=== PATIENT | female | born 1955 | race Caucasian/White ===

== ENCOUNTER 2018-10-02 11:07 | Inpatient (IN) | payer OTHER ==
[2018-10-02] MEDS ORDERED: NS 0.9% 1000 ML** 1,000 ML IV ONE (11:29)
--- NOTE | 2018-10-02 11:46 | ED ---
GI/ HPI - HPI Summary HPI Summary: A 63 y/o female presents to [facility] with a chief complaint of a GI bleed. She says that she had severe abdominal pain in her epigastric area on 09/26/18 that radiated to her back, but she felt better after ice cream. She felt better the next day, but the day after that at lunch around 14:30 when eating a salad she was nauseous and was vomiting for an hour. She then went home and was vomiting even more with diarrhea and abdominal cramping. She noticed that there was bright red blood in her stool. She notes that she passed out several times on the floor. Three days ago at work she "could hardly stand up". She thought that by rehydrating herself would help herself, but she reports coffee-ground emesis 3-4 days ago. She tried 7Up, Annalise ildefonso and Sprite 3 days ago and then she stopped having vomiting and diarrhea, but felt fatigued and could hardly stand up. Today she had stool that again had red blood and the patient is pale. At triage she rated her pain as a 6 /10 in severity. She has a Hx of duodenal ulcer an adrenal insufficiency. She takes Prednisone. - History of Current Complaint Chief Complaint: EDGIBleed Time Seen by Provider: 10/02/18 11:27 Stated Complaint: POSSIBLE GI BLEED PER PT Hx Obtained From: Patient Onset/Duration: Started Days Ago, Still Present Timing: Intermittent, Lasting Days Severity: Moderate Current Severity: Moderate Pain Intensity: 6 - out of 10 Location of Pain: Epigastric Pain Characteristics: Cramping Pain Radiates to: Back Associated Signs and Symptoms: Positive: Nausea, Vomiting, Bright Red Blood w/ Stool, Blood w/Stool, Diarrhea, Pale. Negative: Fever - Allergy/Home Medications Allergies/Adverse Reactions: Allergies Allergy/AdvReac Type Severity Reaction Status Date / Time Iodinated Contrast- Oral and Allergy Severe See Comment Verified 10/02/18 11:24 IV Dye Iodine and Iodide Containing Allergy Severe Anaphylatic Verified 10/02/18 11:24 Produc Shock procaine [From Novocain] Allergy Severe See Comment Verified 10/02/18 11:24 prochlorperazine Allergy Intermediate Hives Verified 10/02/18 11:24 [From Compazine] acetaminophen [From Percocet] Allergy Hives Verified 10/02/18 11:24 adhesive tape Allergy Hives Verified 10/02/18 11:24 hydroxyzine [From Vistaril] Allergy Altered Verified 10/02/18 11:24 Mental Status oxycodone [From Percocet] Allergy Hives Verified 10/02/18 11:24 Home Medications: Home Medications Caffeine 200 mg PO DAILY 10/02/18 [History Confirmed 10/02/18] Calcium Carbonate [Calcium] 500 mg PO DAILY 10/02/18 [History Confirmed 10/02/18 ] Dicyclomine CAP* [Bentyl CAP*] 10 mg PO DAILY 10/02/18 [History Confirmed ] Gabapentin 300 mg PO QPM 10/02/18 [History Confirmed 10/02/18] Hydrocodone/Acetaminophen [[place] 5-325 Tablet] 0.5 each PO Q3HR 10/02/18 [ History Confirmed 10/02/18] Levothyroxine Sodium 75 mcg PO DAILY 10/02/18 [History Confirmed 10/02/18] Magnesium Oxide [Magnesium] 250 mg PO DAILY 10/02/18 [History Confirmed 10/02/18 ] Ondansetron HCl [Zofran 4 MG TAB] 8 mg PO DAILY PRN 10/02/18 [History Confirmed 10/02/18] Valsartan/HCTZ 160/12.5(NF) [Diovan HCT 160/12.5 (NF)] 1 tab PO QAM 10/02/18 [ History Confirmed 10/02/18] Zolpidem Tartrate [Ambien Cr] 12.5 mg PO BEDTIME 10/02/18 [History Confirmed ] predniSONE [Prednisone 5 MG TAB] 10 mg PO DAILY 10/02/18 [History Confirmed ] PMH/Surg Hx/FS Hx/Imm Hx GI History: Reports: Hx Ulcer Sensory History: Denies: Hx Deafness EENT History: Denies: Hx Deafness Infectious Disease History: No Infectious Disease History: Denies: Traveled Outside the [place] in Last 30 Days - Family History Known Family History: Negative: Hypertension, Diabetes - Social History Alcohol Use: None Hx Substance Use: No Substance Use Type: Reports: None Hx Tobacco Use: No Smoking Status (MU): Never Smoked Tobacco Review of Systems Negative: Fever Positive: Abdominal Pain, Vomiting, Diarrhea, Nausea, Other - positive: blood in stool All Other Systems Reviewed And Are Negative: Yes Physical Exam - Summary Physical Exam Summary: VITAL SIGNS: Reviewed. GENERAL: Patient is a well-developed and nourished FEMALE who is lying comfortable in the stretcher. Patient is not in any acute respiratory distress. HEAD AND FACE: No signs of trauma. No ecchymosis, hematomas or skull depressions. No sinus tenderness. EYES: PERRLA, EOMI x 2, No injected conjunctiva, no nystagmus. EARS: Hearing grossly intact. Ear canals and tympanic membranes are within normal limits. MOUTH: Dry oral mucosa. NECK: Supple, trachea is midline, no adenopathy, no JVD, no carotid bruit, no c- spine tenderness, neck with full ROM. CHEST: Symmetric, no tenderness at palpation. LUNGS: Clear to auscultation bilaterally. No wheezing or crackles. CVS: Regular rate and rhythm, S1 and S2 present, no murmurs or gallops appreciated. ABDOMEN: Soft, mild epigastric tenderness. No signs of distention. No rebound, no guarding, and no masses palpated. Bowel sounds are normal. Rectal exam revealed melena. EXTREMITIES: FROM in all major joints, no edema, no cyanosis or clubbing. NEURO: Alert and oriented x 3. No acute neurological deficits. Speech is normal and follows commands. SKIN: Dry and warm, pale. Triage Information Reviewed: Yes Vital Signs On Initial Exam: Initial Vitals Temp Pulse Resp BP Pulse Ox 97.6 F 84 16 107/65 97 10/02/18 11:11 10/02/18 11:11 10/02/18 11:11 10/02/18 11:11 10/02/18 11:11 Vital Signs Reviewed: Yes Diagnostics - Vital Signs Vital Signs Temp Pulse Resp BP Pulse Ox 10/02/18 11:11 97.6 F 84 16 107/65 97 - Laboratory Result Diagrams: 10/03/18 05:23 10/03/18 05:23 Lab Statement: Any lab studies that have been ordered have been reviewed, and results considered in the medical decision making process. GIGU Course/Dx - Course Assessment/Plan: A 63 y/o female presents to [facility] with a chief complaint of a GI bleed. She says that she had severe abdominal pain in her epigastric area on 09/26/18 that radiated to her back, but she felt better after ice cream. She felt better the next day, but the day after that at lunch around 14:30 when eating a salad she was nauseous and was vomiting for an hour. She then went home and was vomiting even more with diarrhea and abdominal cramping. She noticed that there was bright red blood in her stool. She notes that she passed out several times on the floor. Three days ago at work she "could hardly stand up". She thought that by rehydrating herself would help herself, but she reports coffee-ground emesis 3-4 days ago. She tried 7Up, Annalise ildefonso and Sprite 3 days ago and then she stopped having vomiting and diarrhea, but felt fatigued and could hardly stand up. Today she had stool that again had red blood and the patient is pale. At triage she rated her pain as a 6/10 in severity. She has a Hx of duodenal ulcer an adrenal insufficiency. She takes Prednisone. In the ED course the patient was placed in a security monitor, IV access was obtained, IV fluids were started. Blood test results without any significant abnormality except for RBCs of 2.67, hemoglobin 7.4, hematocrit 22, PTT of 42.2, BUN is 43, creatinine 1.33, and total protein of 5.7. Guaiac is positive. In the ED course the patient was given IV fluids and Protonix. At this time I discussed my physical exam and findings with Dr. Hernandez from GI and he would consult for this patient. He also recommends admission to the hospitalist. I discussed my physical exam and test results with Dr. Clifton from the hospitalist services and she agrees to admit patient to her services. Patient is hemodynamically stable alert and oriented x 3. - Diagnoses Provider Diagnoses: GI bleed - Physician Notifications Discussed Care Of Patient With: Massimo Hernandez Time Discussed With Above Provider: 12:39 Instructed by Provider To: MD Will See In ED - Critical Care Time Critical Care Time: 30-74 min Discharge - Sign-Out/Discharge Documenting (check all that apply): Patient Departure - admit Patient Received Moderate/Deep Sedation with Procedure: No - Discharge Plan Condition: Fair Disposition: ADMITTED TO [facility] - Billing Disposition and Condition Condition: FAIR Disposition: Admitted to [facility] - Attestation Statements Document Initiated by Scribe: Yes Documenting Scribe: Daquan Vallejo Provider For Whom Scribe is Documenting (Include Credential): Shane Ramirez MD Scribe Attestation: I, Daquan Vallejo, scribed for Shane Raimrez MD on 10/03/18 at 2021. Scribe Documentation Reviewed: Yes Provider Attestation: The documentation as recorded by the scribe, Daquan Vallejo accurately reflects the service I personally performed and the decisions made by me, Shane Ramirez MD Status of Scribe Document: Viewed Consult Consult: At 12:50 - Discussed case with Dr. Clifton, hospitalist, who accepted the patient for admission.
[2018-10-02 11:58] LABS: ABS Basophils 0.1 10^3/ul (0-0.2); ABS Eosinophils 0.4 10^3/ul (0-0.6); ABS Lymphocytes 1.6 10^3/ul (1.0-4.8); ABS Monocytes 0.4 10^3/ul (0-0.8); ABS Neutrophils 3.4 10^3/ul (1.5-7.7); Eosinophil % 6.8 %; Hematocrit 22 % (35-47); Hemoglobin 7.4 g/dL (12.0-16.0); Lymphocyte % 26.6 %; Mean Corpuscular HGB Conc 33 g/dL (31-36); Mean Corpuscular Hemoglobin 28 pg (27-31); Mean Corpuscular Volume 84 fL (80-97); Mean Platelet Volume 8.3 fL (7.4-10.4); Platelet Count 244 10^3/uL (150-450); Red Blood Count 2.67 10^6 /uL (3.70-4.87); Red Cell Distribution Width 19 % (10-15); White Blood Count 5.9 10^3/uL (3.5-10.8)
[2018-10-02 12:15] LABS: Albumin 3.6 g/dL (3.2-5.2); Albumin/Globulin Ratio 1.7 (1-3); BUN/Creatinine Ratio 32.3 (8-20); C Reactive Protein 5.02 mg/L (<8.01); Calcium 9.1 mg/dL (8.6-10.3); EGFR African American 48.9 (>60); EGFR Non-African American 40.4 (>60); Globulin 2.1 g/dL (2-4); Potassium 3.7 mmol/L (3.5-5.0); Total Bilirubin 0.3 mg/dL (0.2-1.0); Total Protein 5.7 g/dL (6.4-8.9)
[2018-10-02 12:19] LABS: Activated Partial Thrombo Time 42.2 seconds (26.0-38.0)
[2018-10-02 12:21] LABS: BNP 68 pg/mL (<=100)
[2018-10-02] MEDS ORDERED: Pantoprazole IV* 40 MG IV ONE (12:39)
[2018-10-02 13:03] LABS: INR 0.94 (0.82-1.09)
[2018-10-02] MEDS ORDERED: Acetaminophen TAB* 325 MG PO PRN (14:07)
[2018-10-02] MEDS ORDERED: Ondansetron TAB* 4 MG PO PRN (14:15)
[2018-10-02 15:08] LABS: Urine Appearance Cloudy; Urine Bacteria 1+ (Absent); Urine Bilirubin Negative (Negative); Urine Blood Negative (Negative); Urine Color Yellow; Urine Glucose Negative (Negative); Urine Ketones Negative (Negative); Urine Nitrite Positive (Negative); Urine Protein Negative (Negative); Urine Red Blood Cell Trace(0-2/hpf) (Absent); Urine Specific Gravity 1.013 (1.010-1.030); Urine Squamous Epithelial Cell Present (Absent); Urine Urobilinogen Negative (Negative); Urine White Blood Cell 2+(11-20/hpf) (Absent)
[2018-10-02] MEDS: NS 0.9% 1000 ML** 1,000 ML IV SCH ×2 (16:12→23:43)
[2018-10-02] MEDS ORDERED: HYDROcodone/ACET. 7.5/325 LIQ* 15 ML UDC PO PRN (17:04)
[2018-10-02] MEDS: HYDROcodone/ACETAMIN 5-325 MG* 1 TAB PO PRN ×2 (17:14→23:25)
[2018-10-02] MEDS: Pantoprazole* 80 mg IN NS 80 MG/250 ML BAG IV SCH (17:15)
[2018-10-02] MEDS: methylPREDNISolone SOD 40 MG* 1 ML VIAL IV SCH ×2 (17:17→23:26)
--- NOTE | 2018-10-02 19:05 | HP ---
CC: Dr. Hernandez; Dr. Levi, [place], [place] * HISTORY AND PHYSICAL: DATE OF ADMISSION: 10/02/18 PRIMARY CARE PROVIDER: Dr. Maynor Levi from [place], [place], phone number [phone]. CHIEF COMPLAINT: Black and bloody stool. HISTORY OF PRESENT ILLNESS: Ms. Mcmahon is a 63-year-old female with history of status post pheochromocytoma resection as well as status post gastric sleeve surgery in 1996 and gastric ulcers over 30 years ago who presented to the hospital complaining of bloody and black diarrhea. The patient stated that ever since her gastric sleeve surgery in 1996 she has had occasional abdominal pain that is shooting pain; sometimes it "knocks the air out of her" and she takes Bentyl for that. She stated that she had a similar pain on Wednesday, 6 days ago, took some Tums and did well. Subsequently, 3 or 4 days later, when having lunch at the local cafeteria, she had the sudden onset of nausea and vomiting, went home, continued to have nausea and vomiting and started having coffee-ground vomiting. Later on, she developed diarrhea. She had an episode of syncope at home with the diarrhea that was also black. She refused to come in to the emergency department for evaluation. At that point, she stopped her naproxen; she usually takes it twice a day 500 mg and her aspirin that she takes 81 mg daily for a couple of days. She stated that it felt that her black bowel movements are improving until today, when she had another bout of basically bloody diarrhea. She complains of no abdominal pain. She is going to be admitted with a diagnosis of GI bleed. PAST MEDICAL HISTORY: 1. 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 2. History of subsequent adrenal insufficiency diagnosed in October 2017, on chronic prednisone. 3. History of chronic meningioma, which is stable and not operated on. 4. History of subarachnoid hemorrhage in 2002, treated medically. No aneurysm was found. 5. History of hypertension. 6. History of coronary artery disease, status post cardiac catheterization 4 years ago in [place], [place], which showed 80% mid LAD stenosis that was not amenable for intervention. At that point, the patient was recommended to continue aspirin. 7. History of kidney stones. In 1996, the patient has partial gastrectomy and stated that 10% of her stomach was removed for bariatric surgery. After the surgery, she lost approximately 80 pounds. Prior to the surgery, she stated that she had liver and and renal failure. 8. History of digastric ulcers over 30 years ago. CURRENT MEDICATIONS: Include: 1. Caffeine 200 mg daily. 2. Gabapentin 300 mg p.o. q.p.m. 3. Naproxen 500 mg b.i.d. 4. [place] 5 mg/325 mg half a tablet every 3 hours p.r.n. 5. Levothyroxine 75 mcg daily. 6. Bentyl 10 mg daily p.r.n. 7. Calcium carbonate on a p.r.n. basis. 8. Omeprazole 40 mg daily. 9. Magnesium 250 mg daily. 10. Zofran on a p.r.n. basis. 11. Diovan hydrochlorothiazide 160/4.5 one tablet q.a.m. 12. Prednisone 10 mg daily. 13. Ambien 12.5 mg at bedtime. ALLERGIES: Include: 1. IODINE CONTRAST DYE, which caused the patient to have cardiac arrest. 2. NOVOCAINE also caused respiratory arrest. 3. COMPAZINE, hives. 4. ACETAMINOPHEN, hives. 5. ADHESIVE TAPE, hives. 6. VISTARIL, altered mental status. 7. OXYCODONE, hives. Please note the patient takes currently hydrocodone without any problems. FAMILY HISTORY: Positive for sister with colon cancer. Grandfather with colon cancer. 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 She stated that her contract is over in the next 4 days and she is planning to go back to her home in [place] at that time. The patient denies any tobacco, alcohol, or drug use. She drinks coffee on a daily basis. Her surrogate is her , Deyvi. REVIEW OF SYSTEMS: Please see history of present illness. In addition to the above mentioned, the patient stated that she had been gaining weight when on prednisone and she gained over 20 pounds in the past 6 months. In regards to her cardiac history, she denies any problems with exercise intolerance and denies problems with chest pain. All the remaining 12 systems were reviewed with the patient, and apart from the above-mentioned and the ones mentioned in the history of present illness, were negative. PHYSICAL EXAMINATION GENERAL: The patient is a pleasant 63-year-old female who is not in acute distress. Alert and oriented x3. VITAL SIGNS: Blood pressure of 96/55, heart rate of 68 and regular, respiratory rate 16, oxygen saturation 94% on room air, temperature of 97.6. HEENT: Head atraumatic, normocephalic. Eyes: Pupils are equal and reactive to light and accommodation. Oropharynx is clear. Mucosa moist. NECK: Supple. No JVD. No bruit bilaterally. RESPIRATORY: Clear to auscultation bilaterally. CARDIOVASCULAR: Regular rate and rhythm. No murmur. ABDOMEN: Soft, nontender. Bowel sounds are present in all 4 quadrants. EXTREMITIES: There is trace pedal edema, +2 bilaterally. There is no clubbing and cyanosis. NEURO EVALUATION: Speech is clear. Cranial nerves II through XII grossly intact. Motor strength is 5/5 in bilaterally. SKIN: On evaluation of the skin, pale, dry. No rashes appreciated. PSYCHIATRIC EVALUATION: Alert and oriented x3 with no evidence of anxiety or depression. DIAGNOSTIC STUDIES/LAB DATA: Laboratory Data: Sodium 139, potassium 2.7, chloride 105, carbon dioxide 28, BUN 14, creatinine 1.33. Liver function is unremarkable. Lactic acid 1.8. White blood cell count 5.9, hemoglobin of 7.4, hematocrit 22, MCV of 84, and platelets of 244. INR of 0.94, PTT of 42.2. ASSESSMENT AND PLAN: 1. The patient has acute likely upper gastrointestinal bleed. Dr. Hernandez was also already consulted on the case and saw the patient. The patient is going to be placed on Protonix drip and placed in the ICU due to mild hypotension. She is going to be transfused 2 units of packed red blood cells and her H and H is going to be checked every 6 hours. Gastroenterology will follow up on a daily basis, but so far no emergent EGD is planned. 2. In regards to the patient's history of adrenal insufficiency, now with mild hypotension and that she is not able to take p.o. due to gastrointestinal bleed , I have placed the patient on steroids with Solu-Medrol at 50 mg every 8 hours IV. 3. For the patient's hypothyroidism, her levothyroxine is going to be continued. 4. For the patient's DVT prophylaxis, the patient is going to be placed on SCDs and anticoagulants are contraindicated due to her acute gastrointestinal bleed. 5. The patient has a history of coronary artery disease. So far, she has had no cardiac symptoms. I will obtain an EKG and add troponin to her ED lab work. She is going to be monitored on telemetry monitored bed. Unfortunately, her aspirin has to be held. 6. The patient's code status is full. Her surrogate is her . TIME SPENT: Approximately 75 minutes were spent on the admission of this patient. More than half that time was spent [id number] with the patient during the interview and physical exam. [id number]/CPS #: [id number] MTDD
--- NOTE | 2018-10-02 20:02 | CONS ---
GASTROENTEROLOGY CONSULT: DATE: 10/02/18 CONSULTING PHYSICIANS: Kulwinder Timmons, ER; Kiera Clifton, hospitalist. REASON FOR CONSULTATION: Melena and abdominal pain, status post gastric sleeve in 1996, taking naproxen 500 mg twice a day steadily. 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 (also retired RN) present through the history She states she had gastric ulcers diagnosed in 1987 and then a sleeve gastrectomy in 1996 and has not had any endoscopy since then. A year ago, she was placed on prednisone for adrenal insufficiency; the dose has been 15 or 20 mg initially and she says did never get below 10 mg daily and is on that now. Lower doses leave her with fatigue. Her physician in [place], [place] a couple of months after starting the prednisone, put her on Prilosec 40 mg which she takes in the morning. She recalls some GERD, but cannot really specify the full reasons, neither the symptoms or rationale on the part of the doctor for the PPI, but she has stuck with that. She has taken naproxen 500 mg twice a day for about a year and prior to that was on Motrin treating multiple joint pains. She takes a baby aspirin because of coronary disease diagnosed in 2014. She states her diet is decreased in meat, maintains she does not eat very much, although weight has been going up while on prednisone. The last weight recorded in [place], she says, was 180 (compared to a baseline usually in the 160s) and she has gained weight the last 6 months. She has donated blood regularly through the yrs 1-2 units / yr but twice denies being put on iron at any point since pregnancies. PAST MEDICAL HISTORY: 1. Gastric ulcers - 1987. 2. Sleeve gastrectomy in 1996 in [place], stating she was living in [place] at that time and there were abnormalities in liver tests and kidney tests when she had this surgery. She states that 90% of the stomach was removed , though there is no way to verify that. She has not been on iron since then. She would be subjected to some abdominal symptoms and take Tums or Bentyl since then. 2. Pheochromocytoma - in 1999. 3. Meningioma - diagnosed in 2002. She had a subarachnoid hemorrhage then, and it was elected to watch that. 4. Coronary disease - cardiac cath in 2014 in [place], [place] where a mid LAD lesion was seen. She states it was 80% and had poor orientation for stenting and medical treatment was recommended. 5. Adrenal insufficiency - presented with weakness in summer 2017. She came close to fainting while in a [employer]. Her primary physician, Dr. Maynor Levi in [facility] prescribed it. 6. Prediabetes. 7. Chronic back pain - she states she has a positive ERIKA found a year or 2 ago. 8. Family history of colon cancer - sister. Her father has a peptic condition. MEDICATIONS: At home: 1. Gabapentin 300 at 9 p.m. 2. Naproxen 500 b.i.d. 3. Levothyroxine 75. 4. Dicyclomine 10 mg p.r.n. 5. Omeprazole 40 mg q.a.m. 6. Magnesium 250. 7. Diovan HCT 160/12.5. - one particular motel clerk 8. Prednisone 10 mg. 9. Zolpidem 12.5 h.s. ALLERGIES: She has multiple allergies. SOCIAL HISTORY: She is from [place], [place] and has been to her (who is with her during this interview) in 1975. She was in the [employer] for 11 years in [place] and at a burn facility and others elsewhere. 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 She is a nonsmoker. PHYSICAL EXAM: She is a morbidly obese, slightly pale, middle-aged woman, in no overt distress, lying in a gurney in the ER. Blood pressure 96/55, pulse 68. She is afebrile. There has not been any emesis for a couple of days. She had a black stool this morning. HEENT exam shows no icterus. She has no adenopathy. Her lungs are clear. Heart sounds are clear. Breast and pelvic exams are deferred. The abdomen is obese with early panniculus with normal bowel sounds, soft and generally not tender. Extremities show no edema, but there is obesity. There is no gross deformity of foot or knee joints. Neurologic is nonfocal. LABS: Hemoglobin 7.4, hct 22, MCV 84, platelets 244. White count 5.9, BUN 43, creatinine 1.33. LFTs normal. BNP 68. Albumin 3.6. ALT 10, AST 13, bilirubin 0.3. IMPRESSION: This 63-year-old woman with a history of morbid obesity, status post partial gastric resection, and a history of peptic ulcer disease even before that resection, has been on steady daily high-dose NSAIDs. An ulcer is most likely in this setting, although identifying it and potential endoscopic therapy could be more difficult in a surgically altered stomach. At the moment, she appears fairly stable though transfusing her is indicated given her CAD. Endoscopy hopefully can be done when she has settled down some and when the impetus for endoscopic therapy will be more clear based on her course. A fairly aggressive transfusion policy may be indicated given her coronary artery disease and restarting her aspirin 81 mg will be done as soon as possible. After discussion of this with her present, she made a number of comments prioritizing ending her work assignment here and attending all her work obligations this week beginning tomorrow. This went beyond the realm of back and forth bantering amongst chief medical physicist. She truly seemed to indicate she intended on working full-time over the next several days. She will be admitted to the ICU and placed on a PPI drip. [id number]/[facility] #: [id number]
[2018-10-02] MEDS ORDERED: Gabapentin TAB(NF) 600 MG PO SCH (21:00)
[2018-10-02] MEDS ORDERED: Gabapentin CAP(*) 300 MG ONE (21:27)
[2018-10-02] MEDS ORDERED: Gabapentin CAP(*) 300 MG PO SCH (21:45)
[2018-10-02] MEDS ORDERED: Zolpidem TAB* 5 MG PO PRN (21:51)
[2018-10-03 00:33] LABS: Hematocrit 30 % (35-47); Hemoglobin 10.1 g/dL (12.0-16.0)
[2018-10-03 01:06] LABS: Hematocrit 29 % (35-47); Mean Corpuscular HGB Conc 34 g/dL (31-36); Mean Corpuscular Hemoglobin 28 pg (27-31); Mean Corpuscular Volume 83 fL (80-97); Red Blood Count 3.53 10^6 /uL (3.70-4.87); Red Cell Distribution Width 17 % (10-15)
[2018-10-03 01:41] LABS: ABS Lymphocytes 0.9 10^3/ul (1.0-4.8); ABS Monocytes 0.1 10^3/ul (0-0.8); Eosinophil % 0.2 %; Lymphocyte % 12.5 %; Mean Platelet Volume 9.2 fL (7.4-10.4); Nucleated Red Blood Cells % 0.2; Platelet Count 220 10^3/uL (150-450)
[2018-10-03] MEDS: HYDROcodone/ACETAMIN 5-325 MG* 1 TAB PO PRN ×2 (03:03→10:35)
[2018-10-03 03:40] LABS: BUN/Creatinine Ratio 30.4 (8-20); Calcium 8.6 mg/dL (8.6-10.3); EGFR African American 74.8 (>60); EGFR Non-African American 61.9 (>60); Potassium 4.3 mmol/L (3.5-5.0)
[2018-10-03 05:47] LABS: Hematocrit 29 % (35-47); Hemoglobin 9.9 g/dL (12.0-16.0); Mean Corpuscular HGB Conc 34 g/dL (31-36); Mean Corpuscular Hemoglobin 28 pg (27-31); Mean Corpuscular Volume 83 fL (80-97); Mean Platelet Volume 8.4 fL (7.4-10.4); Platelet Count 214 10^3/uL (150-450); Red Blood Count 3.52 10^6 /uL (3.70-4.87); Red Cell Distribution Width 17 % (10-15); White Blood Count 4.7 10^3/uL (3.5-10.8)
[2018-10-03] MEDS ORDERED: Levothyroxine TAB* 75 MCG TAB PO SCH (06:00)
[2018-10-03 06:03] LABS: BUN/Creatinine Ratio 30.3 (8-20); Calcium 8.6 mg/dL (8.6-10.3); EGFR African American 77.8 (>60); EGFR Non-African American 64.3 (>60); Magnesium 1.5 mg/dL (1.9-2.7); Potassium 4.1 mmol/L (3.5-5.0)
[2018-10-03] MEDS: methylPREDNISolone SOD 40 MG* 1 ML VIAL IV SCH ×3 (06:12→16:24)
[2018-10-03 06:29] LABS: ABS Lymphocytes 0.7 10^3/ul (1.0-4.8); Eosinophil % 0.1 %; Lymphocyte % 14.5 %
[2018-10-03] MEDS: Pantoprazole* 80 mg IN NS 80 MG/250 ML BAG IV SCH (09:36)
[2018-10-03] MEDS ORDERED: Ondansetron ODT TAB* 4 MG PO PRN (10:00)
[2018-10-03] MEDS ORDERED: Midazolam* 1 MG/ML 10 ML VIAL (10 MG) ONE (13:16)
[2018-10-03] MEDS ORDERED: fentaNYL* 50 MCG/ML 2 ML VIAL (100 MCG VIAL) ONE (13:16)
[2018-10-03 16:10] VITALS: BP 102/63
--- NOTE | 2018-10-03 19:04 | PRO ---
CC: Lucy Doll DO * DATE OF PROCEDURE: 10/03/18 - ROOM #419 PROCEDURE: EGD. HOSPITAL PROVIDER: Lucy Doll DO. INDICATION: The patient admitted with melena and anemia. She received blood transfusion and has been hemodynamically stable. She is still having some black stool, although it is much better than it was last week. She has a history of vertical sleeve gastrectomy. Also has a history prior to that surgery of peptic ulcer disease. She has been on prednisone long-term for adrenal insufficiency. She also uses naproxen twice a day for discomfort. She is on Prilosec 40 mg daily. MEDICATIONS GIVEN: Midazolam 9 mg IV, Fentanyl 75 mcg IV. DESCRIPTION OF PROCEDURE: Full disclosure of risks was reviewed with the patient as detailed on the consent form. The patient was placed in the left lateral decubitus position and monitored with continuous pulse oximetry, capnography, interval blood pressure monitoring, and direct observation. A bite -block was placed between the patient's teeth. An adult gastroscope was then inserted into the patient's mouth and advanced down the esophagus, into the stomach, and into the distal duodenum. Findings and interventions are described below. FINDINGS: Esophagus was a normal tubular structure. At the GE junction, there appeared to be some resistance as the scope was advanced into the stomach. On closer inspection of the GE junction, there appeared to be several areas that were mildly inflamed appearing. It is possible that this may represent some mild stricture. The scope was able to advance into the stomach. There was evidence of a prior sleeve gastrectomy with a long tubular view of the gastric body. The scope was advanced to the gastric antrum where there was a large clean based ulcer. This ulcer encompassed one-third to one-half of the circumference of the gastric lumen. In one portion of the ulcer, there was visible suture material. Suspect that this might represent an area of anastomosis. The scope was advanced into the duodenum to at least the third portion. The duodenal mucosa in the bulb was a bit irregularly textured. No erosions or ulcers. Distal duodenum was normal in appearance. The scope was then withdrawn from the patient. The patient tolerated the procedure well and was recovered in the GI recovery area. IMPRESSION: 1. Complete upper endoscopy to distal duodenum. 2. Post vertical sleeve gastrectomy anatomy. 3. Slight resistance as the scope was passed through the GE junction suggestive of a mild stricture in this area. Small amount of blood seen on reassessment after the scope was passed through the junction. 4. Large clean based gastric ulcer with 1 surgical staple or suture material appreciated suggesting that this might be an anastomotic segment. 5. Slightly atypical appearance of the duodenal bulb. Not biopsied given clinical context. Can be followed up in the outpatient setting. FOLLOWUP: 1. We will switch the patient to Nexium 40 mg twice daily. Would recommend that she open the capsules into applesauce or similar food material as this might help with absorption given her surgical anatomy. 2. Would strongly avoid using NSAIDs. 3. The patient should have labs closely monitored to ensure that her hemoglobin stays stable and then recovers. 4. Recommended repeat EGD in 2 months to reassess for ulcer. Thank you very much for this referral. [id number]/CPS #: [id number] MEKHI
--- NOTE | 2018-10-03 21:27 | DS ---
CC: Dr. Levi, [place], [place] * DISCHARGE SUMMARY: DATE OF ADMISSION: 10/02/18 DATE OF DISCHARGE: 10/03/18 PRIMARY CARE PROVIDER: Dr. Levi in [place], [place]. PRINCIPAL DIAGNOSES: 1. Upper GI bleed secondary to large gastric antral ulcer. 2. Escherichia coli urinary tract infection. SECONDARY DIAGNOSES: 1. History of pheochromocytoma, status post resection in 1999 with subsequent adrenal insufficiency, on chronic prednisone. 2. Chronic meningioma. 3. History of subarachnoid hemorrhage in 2002. 4. Hypertension. 5. Coronary artery disease. 6. History of kidney stones. DISCHARGE MEDICATIONS: 1. Caffeine 200 mg p.o. daily. 2. Gabapentin 300 mg p.o. q.p.m. 3. [place] 5/325, one half tab p.o. q.3 hours p.r.n. pain. 4. Levothyroxine 75 mcg p.o. daily. 5. Bentyl 10 mg p.o. daily. 6. Calcium 500 mg p.o. daily. 7. Magnesium oxide 250 mg p.o. daily. 8. Zofran 8 mg p.o. daily p.r.n. nausea. 9. Valsartan/hydrochlorothiazide 160/12.5, 1 tab p.o. daily. 10. Prednisone 10 mg p.o. daily. 11. Ambien 12.5 mg p.o. q.h.s. 12. Nexium 40 mg p.o. b.i.d. Capsules are to be opened and the granules dumped on to applesauce, taken twice daily. 13. Keflex 500 mg p.o. b.i.d. x7 days. HOSPITAL COURSE: Ms. 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 The patient in addition to noting bloody stools had coffee-ground emesis and an episode of syncope. The patient initially had refused to come to the emergency; however, her ultimately convinced her to do so. The patient did report taking naproxen twice daily as well as aspirin. The patient was observed in the intensive care unit due to mild hypotension. Her hemoglobin when she presented was low at 7.4. She received 2 units of packed red blood cells and her hemoglobin has since been stable around 10. Her BP has also been stable, though she has been off her usual antihypertensive. This will be resumed on discharge, though her blood pressure will need to be monitored closely. The patient was seen in consultation by Dr. Hernandez, who recommended EGD once the patient had stabilized. EGD was performed on 10/03/18 and revealed a large antral ulcer that was not noted to have any active bleeding. Due to the size of the ulceration and her complicated anatomy due to her prior surgery, it was recommended that she be switched from omeprazole to Nexium capsules and have the sprinkles dumped out on to applesauce and taken twice daily. This will hopefully help with the absorption of the PPI. Additionally, it has been recommended that she have a followup EGD in approximately 2 months. The patient will need to be very mindful of watching her stools for any symptoms that may indicate recurrent bleeding. The patient has been instructed to follow up with her primary care provider upon returning home to [place]. She would need followup blood work. This would be to ensure that her hemoglobin is stable. PHYSICAL EXAMINATION: On the day of discharge, the patient is awake, alert, and oriented. Sitting up in bed, in no acute distress. Cardiac exam reveals normal S1, S2 with regular rate and rhythm. Her lung are clear. Abdomen is soft, nondistended. No significant tenderness in the epigastrium. There is no lower extremity edema. The patient moves all 4 extremities symmetrically. FOLLOWUP CONCERNS: The patient is being discharged home today, 10/03/18. Activity level is as tolerated. Diet is soft, regular as tolerated. CONDITION ON DISCHARGE: Stable. The patient should follow up with her primary care provider upon returning home to [place], [place]. She will need followup CBC next week to ensure her hemoglobin remains stable or improved. Followup EGD is needed for 2 months' time. TIME SPENT: Thirty minutes were spent discharging this patient. [id number]/CPS #: [id number] [facility]ALTHJason
== END 2018-10-03 17:15 | disposition home or self-care (01) | DRG 378 ==
LOC: ED 11:07 → ICU 14:07 → MED 10-03 16:09
PROVIDERS: ADMIT Internal Medicine; ATTEND Hospitalist
PROC: 30233N1 Transfusion of Nonautologous Red Blood Cells into Peripheral Vein, Percutaneous Approach (ICD-10-PCS; 2018-10-02)
PROC: 0DJ08ZZ Inspection of Upper Intestinal Tract, Via Natural or Artificial Opening Endoscopic (ICD-10-PCS; principal; 2018-10-03)
DX: K25.4 Chronic or unspecified gastric ulcer with hemorrhage (principal); N39.0 Urinary tract infection, site not specified; E27.49 Other adrenocortical insufficiency; I95.9 Hypotension, unspecified; E66.01 Morbid (severe) obesity due to excess calories; B96.20 Unspecified Escherichia coli [E. coli] as the cause of diseases classified elsewhere; D32.9 Benign neoplasm of meninges, unspecified; I10 Essential (primary) hypertension; D50.0 Iron deficiency anemia secondary to blood loss (chronic); K92.1 Melena; M54.9 Dorsalgia, unspecified; R73.03 Prediabetes; I25.10 Atherosclerotic heart disease of native coronary artery without angina pectoris; Z87.442 Personal history of urinary calculi; Z90.3 Acquired absence of stomach [part of]; Z79.82 Long term (current) use of aspirin; Z79.899 Other long term (current) drug therapy; Z88.6 Allergy status to analgesic agent; Z91.041 Radiographic dye allergy status; Z88.5 Allergy status to narcotic agent; Z88.8 Allergy status to other drugs, medicaments and biological substances; Z91.048 Other nonmedicinal substance allergy status; Z80.0 Family history of malignant neoplasm of digestive organs; Z83.3 Family history of diabetes mellitus; Z79.52 Long term (current) use of systemic steroids; Z68.34 Body mass index [BMI] 34.0-34.9, adult
CPT/HCPCS: 36415; 80048; 80053; 81003; 81015; 82140; 82272; 83605; 83690; 83735; 83880; 84484; 85014; 85018; 85025; 85610; 85730; 86140; 86850; 86900; 86901; 86922; 87077; 87086; 87186; 93005; 99156; 99285; A9270-GY; J2250; J2920; J3010; P9040